=== PATIENT | male | born 1940 | race African-American/Black ===

== ENCOUNTER 2021-08-17 20:57 | Inpatient (IN) | payer OTHER ==
[2021-08-17 21:23] VITALS: BMI 27.4
[2021-08-17] MEDS ORDERED: ASPIRIN 325 MG TABLET PO ONE (21:55)
[2021-08-17 22:05] LABS: BASO % 0.8 % (0-2.0); EOS % 4.4 % (0-4.5); HEMOGLOBIN 12.3 GM/dL (11.7-16.9); LYMPH % 31.2 % (8-40); MCH 26.3 pg (25.7-33.7); MCHC 33.1 g/dl (32.0-35.9); MEAN CELL VOLUME 79.5 fl (80-96); MEAN PLT VOLUME 7.5 fl (7.5-11.1); MONO % 8.8 % (3.8-10.2); NEUT % 54.8 % (42.8-82.8); PLATELET COUNT 298 10^3/uL (134-434); RBC 4.66 M/mm3 (4.00-5.60); WHITE BLOOD COUNT 6.6 K/mm3 (4.0-10.0)
[2021-08-17 22:11] LABS: INR 1.03 (0.83-1.09); PROTHROMBIN TIME (PATIENT) 11.8 SEC (9.7-13.0)
[2021-08-17 22:14] LABS: ACTIVATED PTT 32.2 SECONDS (25.2-36.5)
[2021-08-17] MEDS ORDERED: ASPIRIN 325 MG TABLET ONE (22:18)
[2021-08-17 22:30] LABS: ALBUMIN 3.2 g/dl (3.4-5.0); BLOOD UREA NITROGEN 22.9 mg/dL (7-18)
[2021-08-17 22:33] LABS: CREATININE 2.3 mg/dL (0.55-1.3)
[2021-08-17 22:34] LABS: BILIRUBIN,TOTAL 0.3 mg/dL (0.2-1); TOT PROT 6.5 g/dl (6.4-8.2)
[2021-08-18] MEDS ORDERED: ATORVASTATIN CA 80 MG TABLET (FP) PO ONE (00:09)
[2021-08-18] MEDS ORDERED: ATORVASTATIN CA 80 MG TABLET (FP) ONE (00:14)
[2021-08-18] MEDS ORDERED: NOREPINEPHRINE D5W PREMIX 16,000 MCG/500 ML BAG IVPB SCH (00:15)
[2021-08-18] MEDS ORDERED: HEPARIN NA (PORCINE) 5,000 UNITS/ML 1ML VIAL ONE (06:08)
[2021-08-18] MEDS: HEPARIN NA (PORCINE) 5,000 UNITS/ML 1ML VIAL SQ SCH ×3 (06:12→21:05)
[2021-08-18 07:22] LABS: BLOOD UREA NITROGEN 22.5 mg/dL (7-18); CALCIUM 9.2 mg/dL (8.5-10.1)
[2021-08-18 07:23] LABS: ALBUMIN 3.2 g/dl (3.4-5.0)
[2021-08-18 07:26] LABS: CREATININE 2.1 mg/dL (0.55-1.3); PHOSPHOROUS 4.3 mg/dL (2.5-4.9)
[2021-08-18 07:27] LABS: BILIRUBIN,TOTAL 0.3 mg/dL (0.2-1); TOT PROT 6.2 g/dl (6.4-8.2)
[2021-08-18] MEDS ORDERED: ASPIRIN COATED 81 MG TABLET.EC PO SCH (10:00)
[2021-08-18 10:04] LABS: BASO % 0.5 % (0-2.0); EOS % 5.4 % (0-4.5); HEMOGLOBIN 11.5 GM/dL (11.7-16.9); LYMPH % 36.1 % (8-40); MCH 26.1 pg (25.7-33.7); MCHC 32.9 g/dl (32.0-35.9); MEAN CELL VOLUME 79.4 fl (80-96); MEAN PLT VOLUME 7.4 fl (7.5-11.1); MONO % 9.3 % (3.8-10.2); NEUT % 48.7 % (42.8-82.8); PLATELET COUNT 304 10^3/uL (134-434); RBC 4.41 M/mm3 (4.00-5.60); RDW 15.8 % (11.9-15.9); WHITE BLOOD COUNT 6.6 K/mm3 (4.0-10.0)
[2021-08-18] MEDS ORDERED: amLODIPine BESYLATE 5 MG TABLET (FP) PO SCH (12:00)
[2021-08-18] MEDS: SODIUM CHLORIDE 1,000 ML IV SCH (13:00)
[2021-08-18] MEDS: CLOPIDOGREL BISULFATE 75 MG TABLET (FP) PO SCH (13:26)
[2021-08-18] MEDS ORDERED: amLODIPine BESYLATE 5 MG TABLET (FP) PO ONE (15:49)
[2021-08-18] MEDS ORDERED: PNEUMOC 20-VAL CONJ-DIP CRM/PF 0.5 ML SYRINGE IM ONE (17:45)
[2021-08-18] MEDS ORDERED: FLU VACC QS2021-22(6MOS UP)/PF 60 MCG/0.5 ML SYRINGE IM ONE (17:45)
[2021-08-18 18:22] LABS: EPI CELLS 2 /uL (0-25.1); HYALINE CASTS 0 /uL (0-3.1); PH,URINE 5.5 (5.0-8.0); URINE APPEARANCE CLEAR; URINE BACTERIA 4 /uL (0-1359); URINE BILIRUBIN NEGATIVE (NEGATIVE); URINE COLOR YELLOW; URINE GLUCOSE (UA) TRACE (NEGATIVE); URINE KETONE NEGATIVE (NEGATIVE); URINE LEUK ESTERASE NEGATIVE (NEGATIVE); URINE NITRITE NEGATIVE (NEGATIVE); URINE PROTEIN 1+ (NEGATIVE); URINE RBC 2 /uL (0-23.9); URINE WBC 4 /uL (0-25.8)
[2021-08-18] MEDS: ATORVASTATIN CA 40 MG TABLET (FP) PO SCH (21:05)
[2021-08-18] MEDS ORDERED: ATORVASTATIN CA 80 MG TABLET (FP) PO SCH (22:00)
[2021-08-19] MEDS: HEPARIN NA (PORCINE) 5,000 UNITS/ML 1ML VIAL SQ SCH ×3 (06:07→21:56)
[2021-08-19] MEDS: CLOPIDOGREL BISULFATE 75 MG TABLET (FP) PO SCH (09:06)
[2021-08-19] MEDS: amLODIPine BESYLATE 10 MG TABLET (FP) PO SCH (09:06)
[2021-08-19 09:24] LABS: BASO % 0.7 % (0-2.0); EOS % 6.1 % (0-4.5); HEMATOCRIT 38.6 % (35.4-49); HEMOGLOBIN 12.3 GM/dL (11.7-16.9); LYMPH % 40.1 % (8-40); MCH 25.5 pg (25.7-33.7); MCHC 31.9 g/dl (32.0-35.9); MEAN CELL VOLUME 79.9 fl (80-96); MEAN PLT VOLUME 7.7 fl (7.5-11.1); MONO % 7.9 % (3.8-10.2); NEUT % 45.2 % (42.8-82.8); PLATELET COUNT 323 10^3/uL (134-434); RBC 4.84 M/mm3 (4.00-5.60); RDW 16.1 % (11.9-15.9); WHITE BLOOD COUNT 6.2 K/mm3 (4.0-10.0)
[2021-08-19 09:43] LABS: CALCIUM 9.4 mg/dL (8.5-10.1)
[2021-08-19 09:44] LABS: ALBUMIN 3.4 g/dl (3.4-5.0); BLOOD UREA NITROGEN 18.9 mg/dL (7-18); MAGNESIUM 2.1 mg/dL (1.8-2.4)
[2021-08-19 09:47] LABS: CREATININE 1.8 mg/dL (0.55-1.3); PHOSPHOROUS 3.7 mg/dL (2.5-4.9)
[2021-08-19 09:48] LABS: BILIRUBIN,TOTAL 0.5 mg/dL (0.2-1); TOT PROT 6.8 g/dl (6.4-8.2)
[2021-08-19] MEDS: SODIUM CHLORIDE 1,000 ML IV SCH (15:16)
[2021-08-19] MEDS: ATORVASTATIN CA 40 MG TABLET (FP) PO SCH (21:51)
[2021-08-20] MEDS: HEPARIN NA (PORCINE) 5,000 UNITS/ML 1ML VIAL SQ SCH ×3 (06:04→21:21)
[2021-08-20] MEDS: ASPIRIN 81 MG CHEWABLE TABLETS PO SCH (09:37)
[2021-08-20] MEDS: CLOPIDOGREL BISULFATE 75 MG TABLET (FP) PO SCH (09:37)
[2021-08-20] MEDS: amLODIPine BESYLATE 10 MG TABLET (FP) PO SCH (09:37)
[2021-08-20 09:38] LABS: BASO % 0.7 % (0-2.0); EOS % 6.5 % (0-4.5); HEMATOCRIT 36.4 % (35.4-49); HEMOGLOBIN 11.7 GM/dL (11.7-16.9); LYMPH % 36.2 % (8-40); MCH 25.6 pg (25.7-33.7); MCHC 32.2 g/dl (32.0-35.9); MEAN CELL VOLUME 79.6 fl (80-96); MEAN PLT VOLUME 7.8 fl (7.5-11.1); MONO % 8.3 % (3.8-10.2); NEUT % 48.3 % (42.8-82.8); PLATELET COUNT 307 10^3/uL (134-434); RBC 4.58 M/mm3 (4.00-5.60); RDW 15.7 % (11.9-15.9); WHITE BLOOD COUNT 6.5 K/mm3 (4.0-10.0)
[2021-08-20 10:04] LABS: CALCIUM 9.4 mg/dL (8.5-10.1)
[2021-08-20 10:06] LABS: ALBUMIN 3.4 g/dl (3.4-5.0); MAGNESIUM 2.1 mg/dL (1.8-2.4)
[2021-08-20 10:08] LABS: CREATININE 1.8 mg/dL (0.55-1.3)
[2021-08-20 10:09] LABS: BILIRUBIN,TOTAL 0.5 mg/dL (0.2-1); TOT PROT 6.8 g/dl (6.4-8.2)
[2021-08-20] MEDS: ATORVASTATIN CA 40 MG TABLET (FP) PO SCH (21:21)
[2021-08-21] MEDS: HEPARIN NA (PORCINE) 5,000 UNITS/ML 1ML VIAL SQ SCH ×3 (06:03→21:09)
[2021-08-21] MEDS: amLODIPine BESYLATE 10 MG TABLET (FP) PO SCH (09:00)
[2021-08-21] MEDS: ASPIRIN 81 MG CHEWABLE TABLETS PO SCH (09:00)
[2021-08-21] MEDS: CLOPIDOGREL BISULFATE 75 MG TABLET (FP) PO SCH (09:00)
[2021-08-21 09:40] LABS: BASO % 0.6 % (0-2.0); EOS % 6.9 % (0-4.5); HEMATOCRIT 38.4 % (35.4-49); HEMOGLOBIN 12.2 GM/dL (11.7-16.9); LYMPH % 36.4 % (8-40); MCH 25.3 pg (25.7-33.7); MCHC 31.7 g/dl (32.0-35.9); MEAN CELL VOLUME 79.9 fl (80-96); MEAN PLT VOLUME 7.6 fl (7.5-11.1); MONO % 10.9 % (3.8-10.2); NEUT % 45.2 % (42.8-82.8); PLATELET COUNT 302 10^3/uL (134-434); RDW 15.4 % (11.9-15.9); WHITE BLOOD COUNT 6.3 K/mm3 (4.0-10.0)
[2021-08-21 09:55] LABS: ALBUMIN 3.2 g/dl (3.4-5.0); BLOOD UREA NITROGEN 23.6 mg/dL (7-18); CALCIUM 9.2 mg/dL (8.5-10.1)
[2021-08-21 09:58] LABS: CREATININE 1.9 mg/dL (0.55-1.3); PHOSPHOROUS 4.1 mg/dL (2.5-4.9)
[2021-08-21 09:59] LABS: BILIRUBIN,TOTAL 0.4 mg/dL (0.2-1); TOT PROT 6.4 g/dl (6.4-8.2)
[2021-08-21] MEDS: ATORVASTATIN CA 40 MG TABLET (FP) PO SCH (21:09)
[2021-08-22] MEDS: HEPARIN NA (PORCINE) 5,000 UNITS/ML 1ML VIAL SQ SCH ×3 (06:04→21:13)
[2021-08-22 08:21] LABS: BASO % 0.6 % (0-2.0); EOS % 7.5 % (0-4.5); HEMATOCRIT 38.3 % (35.4-49); HEMOGLOBIN 11.9 GM/dL (11.7-16.9); LYMPH % 38.2 % (8-40); MCH 25.2 pg (25.7-33.7); MCHC 31.2 g/dl (32.0-35.9); MEAN CELL VOLUME 80.9 fl (80-96); MEAN PLT VOLUME 7.7 fl (7.5-11.1); MONO % 6.8 % (3.8-10.2); NEUT % 46.9 % (42.8-82.8); PLATELET COUNT 314 10^3/uL (134-434); RBC 4.73 M/mm3 (4.00-5.60); RDW 15.8 % (11.9-15.9); WHITE BLOOD COUNT 7.5 K/mm3 (4.0-10.0)
[2021-08-22 08:50] LABS: BLOOD UREA NITROGEN 29.1 mg/dL (7-18); CALCIUM 9.3 mg/dL (8.5-10.1); MAGNESIUM 2.2 mg/dL (1.8-2.4)
[2021-08-22 08:53] LABS: CREATININE 2.2 mg/dL (0.55-1.3); PHOSPHOROUS 4.2 mg/dL (2.5-4.9)
[2021-08-22 08:54] LABS: BILIRUBIN,TOTAL 0.3 mg/dL (0.2-1); TOT PROT 6.1 g/dl (6.4-8.2)
[2021-08-22] MEDS: CLOPIDOGREL BISULFATE 75 MG TABLET (FP) PO SCH (09:00)
[2021-08-22] MEDS: ASPIRIN 81 MG CHEWABLE TABLETS PO SCH (09:00)
[2021-08-22] MEDS: amLODIPine BESYLATE 10 MG TABLET (FP) PO SCH (09:00)
[2021-08-22] MEDS: SODIUM CHLORIDE 1,000 ML IV SCH (11:17)
[2021-08-22 12:16] LABS: EPI CELLS 3 /uL (0-25.1); HYALINE CASTS 0 /uL (0-3.1); URINE APPEARANCE CLEAR; URINE BACTERIA 2291 /uL (0-1359); URINE BILIRUBIN NEGATIVE (NEGATIVE); URINE COLOR YELLOW; URINE GLUCOSE (UA) NEGATIVE (NEGATIVE); URINE KETONE NEGATIVE (NEGATIVE); URINE LEUK ESTERASE NEGATIVE (NEGATIVE); URINE NITRITE NEGATIVE (NEGATIVE); URINE PROTEIN 1+ (NEGATIVE); URINE RBC 2 /uL (0-23.9); URINE UROBILINOGEN 0.2 mg/dL (0.2-1.0); URINE WBC 5 /uL (0-25.8)
[2021-08-22] MEDS ORDERED: ATORVASTATIN CA 80 MG TABLET (FP) PO SCH (22:00)
[2021-08-23] MEDS: SODIUM CHLORIDE 1,000 ML IV SCH (00:45)
[2021-08-23] MEDS: HEPARIN NA (PORCINE) 5,000 UNITS/ML 1ML VIAL SQ SCH ×2 (05:46→13:21)
[2021-08-23 09:03] LABS: BASO % 0.7 % (0-2.0); EOS % 7.5 % (0-4.5); HEMATOCRIT 36.1 % (35.4-49); HEMOGLOBIN 11.4 GM/dL (11.7-16.9); LYMPH % 38.4 % (8-40); MCH 25.6 pg (25.7-33.7); MCHC 31.5 g/dl (32.0-35.9); MEAN CELL VOLUME 81.1 fl (80-96); MEAN PLT VOLUME 7.6 fl (7.5-11.1); MONO % 9.3 % (3.8-10.2); NEUT % 44.1 % (42.8-82.8); PLATELET COUNT 309 10^3/uL (134-434); RBC 4.45 M/mm3 (4.00-5.60); RDW 15.6 % (11.9-15.9); WHITE BLOOD COUNT 6.9 K/mm3 (4.0-10.0)
[2021-08-23] MEDS: amLODIPine BESYLATE 10 MG TABLET (FP) PO SCH (09:06)
[2021-08-23] MEDS: CLOPIDOGREL BISULFATE 75 MG TABLET (FP) PO SCH (09:06)
[2021-08-23] MEDS: ASPIRIN 81 MG CHEWABLE TABLETS PO SCH (09:07)
[2021-08-23 10:02] LABS: PHOSPHOROUS 4.1 mg/dL (2.5-4.9)
[2021-08-23 10:03] LABS: BILIRUBIN,TOTAL 0.3 mg/dL (0.2-1); TOT PROT 5.8 g/dl (6.4-8.2)
[2021-08-23 10:14] LABS: CALCIUM 8.8 mg/dL (8.5-10.1); MAGNESIUM 2.1 mg/dL (1.8-2.4)
[2021-08-23 10:15] LABS: ALBUMIN 2.9 g/dl (3.4-5.0); BLOOD UREA NITROGEN 26.8 mg/dL (7-18)
[2021-08-23 14:55] VITALS: BP 140/77; PULSE 98; TEMP 98.7
== END 2021-08-23 16:54 | disposition home or self-care (01) | DRG 69 ==
LOC: JER 20:57 → JERBED 22:33 → J4S 08-18 08:00
PROVIDERS: ADMIT Internal Medicine; ATTEND Internal Medicine
DX: G45.8 Other transient cerebral ischemic attacks and related syndromes (principal); I69.354 Hemiplegia and hemiparesis following cerebral infarction affecting left non-dominant side; N17.9 Acute kidney failure, unspecified; E78.5 Hyperlipidemia, unspecified; G51.0 Bell's palsy; I44.0 Atrioventricular block, first degree; I69.391 Dysphagia following cerebral infarction; R13.19 Other dysphagia; N28.1 Cyst of kidney, acquired; R20.8 Other disturbances of skin sensation; I12.9 Hypertensive chronic kidney disease with stage 1 through stage 4 chronic kidney disease, or unspecified chronic kidney disease; N18.9 Chronic kidney disease, unspecified; Z85.46 Personal history of malignant neoplasm of prostate; R73.03 Prediabetes
CPT/HCPCS: 36415; 70450-TC; 70496-TC; 70498-TC; 70551-TC; 71045-TC-FY; 72125-TC; 76775-TC; 80053; 80061; 81003; 82550; 82553; 82570; 83036; 83735; 84100; 84156; 84300; 84443; 84484; 85025; 85610; 85730; 86850; 86900; 86901; 90677; 90686; 93005; 93010; 93306-TC; 93880-TC; 94010; 97116-GP; 97162-GP; 99285-25; C9803-CS; G0008; J1644; U0003; U0005

== ENCOUNTER 2023-06-01 14:23 | Observation (INO) | payer OTHER ==
[2023-06-01 14:50] VITALS: BMI 35.7
[2023-06-01 16:31] LABS: BASO % 1.1 % (0-2.0); EOS % 5.3 % (0-4.5); HEMATOCRIT 32.5 % (35.4-49); HEMOGLOBIN 10.3 GM/dL (11.7-16.9); LYMPH % 30.9 % (8-40); MCH 24.8 pg (25.7-33.7); MCHC 31.7 g/dl (32.0-35.9); MEAN CELL VOLUME 78.2 fl (80-96); MONO % 8.7 % (3.8-10.2); PLATELET COUNT 302 10^3/uL (134-434); RBC 4.15 M/mm3 (4.00-5.60); RDW 18.4 % (11.9-15.9)
[2023-06-01 16:38] LABS: INR 1.1 (0.83-1.09); PROTHROMBIN TIME (PATIENT) 12.7 SEC (9.7-13.0)
[2023-06-01 16:41] LABS: ACTIVATED PTT 31.8 SECONDS (25.2-36.5)
[2023-06-01 16:48] LABS: CHLORIDE 114 mmol/L (98-107); SODIUM 141 mmol/L (136-145)
[2023-06-01 16:49] LABS: ALBUMIN 3.4 g/dl (3.4-5.0); BLOOD UREA NITROGEN 35.5 mg/dL (7-18); CALCIUM 9.2 mg/dL (8.5-10.1); CO2 21 mmol/L (21-32); GLUCOSE,RANDOM 80 mg/dL (74-106); MAGNESIUM 2.1 mg/dL (1.8-2.4)
[2023-06-01 16:52] LABS: CREATININE 3.2 mg/dL (0.55-1.3); SGOT/AST 28 U/L (15-37); SGPT/ALT 33 U/L (13-61)
[2023-06-01 16:53] LABS: URIC ACID 8.2 mg/dL (2.6-7.2)
[2023-06-01 16:55] LABS: BILIRUBIN,TOTAL 0.2 mg/dL (0.2-1); TOT PROT 7.1 g/dl (6.4-8.2)
[2023-06-01 16:56] LABS: ALK PHOS 87 U/L (45-117)
[2023-06-01 16:58] LABS: ANION GAP 7 mmol/L (4-13); POTASSIUM 6.1 mmol/L (3.5-5.1)
[2023-06-01 17:18] LABS: ERYTHROCYTE SEDIMENTATION RATE 28 mm/hr (0-20)
[2023-06-01] MEDS ORDERED: predniSONE 20 MG TABLET (UD) ONE (17:46)
[2023-06-01] MEDS ORDERED: SODIUM ZIRCONIUM CYCLOSILICATE (LOKELMA) 10 GM PACKET ONE (17:46)
[2023-06-01] MEDS ORDERED: DEXTROSE 50%-WATER 25 GM/50 ML DISP.SYRIN ONE (17:46)
[2023-06-01] MEDS ORDERED: INSULIN REGULAR HUMAN 100 UNITS/ML *VIAL ONE (17:47)
[2023-06-01] MEDS: predniSONE 20 MG TABLET (UD) PO ONE (17:59)
[2023-06-01] MEDS: DEXTROSE 50%-WATER 25 GM/50 ML DISP.SYRIN IVPUSH ONE (17:59)
[2023-06-01] MEDS: SODIUM CHLORIDE 0.9% 500 ML INFUS.BAG IV ONE (17:59)
[2023-06-01] MEDS: INSULIN REGULAR HUMAN 100 UNITS/ML *VIAL IVPUSH ONE (17:59)
[2023-06-01] MEDS: SODIUM ZIRCONIUM CYCLOSILICATE (LOKELMA) 5 GM PACKET PO ONE (17:59)
[2023-06-01] MEDS ORDERED: HEPARIN NA (PORCINE) 5,000 UNITS/ML 1ML VIAL ONE (21:28)
[2023-06-01] MEDS: HEPARIN NA (PORCINE) 5,000 UNITS/ML 1ML VIAL SQ SCH (21:33)
[2023-06-01 22:55] LABS: RETICULOCYTES 0.68 % (0.5-1.5)
[2023-06-01 23:01] LABS: EPI CELLS 2 /uL (0-25.1); HYALINE CASTS 0 /uL (0-3.1); PH,URINE 5.5 (5.0-8.0); URINE APPEARANCE CLEAR; URINE BACTERIA 1 /uL (0-1359); URINE BILIRUBIN NEGATIVE (NEGATIVE); URINE COLOR YELLOW; URINE GLUCOSE (UA) NEGATIVE (NEGATIVE); URINE KETONE NEGATIVE (NEGATIVE); URINE LEUK ESTERASE NEGATIVE (NEGATIVE); URINE NITRITE NEGATIVE (NEGATIVE); URINE PROTEIN 2+ (NEGATIVE); URINE RBC 10 /uL (0-23.9); URINE UROBILINOGEN 0.2 mg/dL (0.2-1.0); URINE WBC 3 /uL (0-25.8)
[2023-06-01 23:03] LABS: IRON SERUM 26 ug/dL (50-175); PHOSPHOROUS 3.9 mg/dL (2.5-4.9); TOTAL IRON BINDING CAPACITY 317 ug/dL (250-450)
[2023-06-01] MEDS ORDERED: COLCHICINE 0.6 MG TAB ONE (23:06)
[2023-06-02] MEDS ORDERED: COLCHICINE 0.6 MG TAB ONE (00:26)
[2023-06-02] MEDS: COLCHICINE 0.6 MG TAB PO ONE ×2 (00:28)
[2023-06-02] MEDS: SODIUM ZIRCONIUM CYCLOSILICATE (LOKELMA) 5 GM PACKET PO SCH ×2 (02:51→13:43)
[2023-06-02] MEDS ORDERED: SODIUM ZIRCONIUM CYCLOSILICATE (LOKELMA) 10 GM PACKET ONE (02:51)
[2023-06-02 07:39] LABS: BASO % 0.3 % (0-2.0); HEMATOCRIT 31.8 % (35.4-49); LYMPH % 20.2 % (8-40); MCH 24.5 pg (25.7-33.7); MCHC 31.4 g/dl (32.0-35.9); MEAN CELL VOLUME 77.9 fl (80-96); MEAN PLT VOLUME 6.9 fl (7.5-11.1); MONO % 3.2 % (3.8-10.2); NEUT % 76.3 % (42.8-82.8); PLATELET COUNT 333 10^3/uL (134-434); RBC 4.09 M/mm3 (4.00-5.60); RDW 18.4 % (11.9-15.9); RETICULOCYTES 0.83 % (0.5-1.5); WHITE BLOOD COUNT 9.2 K/mm3 (4.0-10.0)
[2023-06-02 07:53] LABS: POTASSIUM 5.3 mmol/L (3.5-5.1)
[2023-06-02 08:00] LABS: ALBUMIN 3.2 g/dl (3.4-5.0); BLOOD UREA NITROGEN 37.2 mg/dL (7-18); CALCIUM 9.3 mg/dL (8.5-10.1)
[2023-06-02 08:01] LABS: MAGNESIUM 1.8 mg/dL (1.8-2.4)
[2023-06-02 08:04] LABS: PHOSPHOROUS 4.4 mg/dL (2.5-4.9)
[2023-06-02 08:05] LABS: BILIRUBIN,TOTAL 0.2 mg/dL (0.2-1)
[2023-06-02 08:06] LABS: TOT PROT 6.7 g/dl (6.4-8.2)
[2023-06-02] MEDS: ASPIRIN COATED 81 MG TABLET.EC PO SCH (09:40)
[2023-06-02] MEDS: amLODIPine BESYLATE 10 MG TABLET (FP) PO SCH (09:40)
[2023-06-02] MEDS: ATORVASTATIN CA 40 MG TABLET (FP) PO SCH (21:19)
[2023-06-03 08:21] LABS: POTASSIUM 4.3 mmol/L (3.5-5.1)
[2023-06-03 08:21] LABS: BASO % 0.6 % (0-2.0); EOS % 6.7 % (0-4.5); HEMATOCRIT 29.6 % (35.4-49); HEMOGLOBIN 9.3 GM/dL (11.7-16.9); LYMPH % 41.2 % (8-40); MCH 24.5 pg (25.7-33.7); MCHC 31.4 g/dl (32.0-35.9); MEAN PLT VOLUME 7.4 fl (7.5-11.1); MONO % 8.5 % (3.8-10.2); PLATELET COUNT 330 10^3/uL (134-434); RDW 17.7 % (11.9-15.9); WHITE BLOOD COUNT 9.1 K/mm3 (4.0-10.0)
[2023-06-03 08:25] LABS: ALBUMIN 2.8 g/dl (3.4-5.0); BLOOD UREA NITROGEN 44.6 mg/dL (7-18); CALCIUM 8.2 mg/dL (8.5-10.1); MAGNESIUM 1.7 mg/dL (1.8-2.4)
[2023-06-03 08:28] LABS: CREATININE 3.2 mg/dL (0.55-1.3)
[2023-06-03 08:29] LABS: TOT PROT 5.8 g/dl (6.4-8.2)
[2023-06-03 08:31] LABS: BILIRUBIN,TOTAL 0.3 mg/dL (0.2-1)
[2023-06-03] MEDS: MAGNESIUM SULF 50% (8.12 MEQ/2 ML-1 GM VIAL) IVPB ONE (09:07)
[2023-06-03] MEDS: CLOPIDOGREL BISULFATE 75 MG TABLET (FP) PO SCH (09:27)
[2023-06-03] MEDS: MAGNESIUM 2GM/50ML STERILE WATER IVPB IVPB ONE (10:24)
[2023-06-03] MEDS: SODIUM CHLORIDE 0.45% 1,000 ML IV SCH (11:21)
[2023-06-04] MEDS: HEPARIN NA (PORCINE) 5,000 UNITS/ML 1ML VIAL SQ SCH (06:26)
[2023-06-04 09:01] LABS: BASO % 0.8 % (0-2.0); HEMATOCRIT 29.6 % (35.4-49); HEMOGLOBIN 9.4 GM/dL (11.7-16.9); LYMPH % 41.4 % (8-40); MCH 24.9 pg (25.7-33.7); MCHC 31.9 g/dl (32.0-35.9); MEAN CELL VOLUME 78.1 fl (80-96); MEAN PLT VOLUME 7.1 fl (7.5-11.1); MONO % 9.8 % (3.8-10.2); PLATELET COUNT 316 10^3/uL (134-434); RBC 3.79 M/mm3 (4.00-5.60); RDW 17.9 % (11.9-15.9); WHITE BLOOD COUNT 7.2 K/mm3 (4.0-10.0)
[2023-06-04 09:15] LABS: POTASSIUM 4.2 mmol/L (3.5-5.1)
[2023-06-04 09:18] LABS: ALBUMIN 2.8 g/dl (3.4-5.0); CALCIUM 8.2 mg/dL (8.5-10.1)
[2023-06-04 09:19] LABS: BLOOD UREA NITROGEN 42.9 mg/dL (7-18)
[2023-06-04 09:21] LABS: CREATININE 3.1 mg/dL (0.55-1.3); PHOSPHOROUS 4.6 mg/dL (2.5-4.9)
[2023-06-04 09:23] LABS: BILIRUBIN,TOTAL 0.3 mg/dL (0.2-1); TOT PROT 5.9 g/dl (6.4-8.2)
[2023-06-04] MEDS: ASPIRIN COATED 81 MG TABLET.EC PO SCH (09:26)
[2023-06-04] MEDS: CLOPIDOGREL BISULFATE 75 MG TABLET (FP) PO SCH (09:26)
[2023-06-04] MEDS ORDERED: SODIUM ZIRCONIUM CYCLOSILICATE (LOKELMA) 5 GM PACKET PO SCH (10:00)
[2023-06-04] MEDS ORDERED: COLCHICINE 0.6 MG TAB PO SCH (10:00)
[2023-06-04] MEDS: ATORVASTATIN CA 40 MG TABLET (FP) PO SCH (21:10)
[2023-06-05 10:05] LABS: HEMATOCRIT 30.6 % (35.4-49); HEMOGLOBIN 9.8 GM/dL (11.7-16.9); MCHC 32.1 g/dl (32.0-35.9); MEAN CELL VOLUME 77.9 fl (80-96); MEAN PLT VOLUME 7.1 fl (7.5-11.1); PLATELET COUNT 326 10^3/uL (134-434); RBC 3.92 M/mm3 (4.00-5.60); RDW 17.5 % (11.9-15.9); WHITE BLOOD COUNT 6.8 K/mm3 (4.0-10.0)
[2023-06-05 10:23] LABS: POTASSIUM 4.2 mmol/L (3.5-5.1)
[2023-06-05 10:34] LABS: MAGNESIUM 1.8 mg/dL (1.8-2.4)
[2023-06-05 10:37] LABS: CREATININE 2.9 mg/dL (0.55-1.3)
[2023-06-05 10:38] LABS: CALCIUM 8.4 mg/dL (8.5-10.1)
[2023-06-05 10:42] LABS: BLOOD UREA NITROGEN 38.4 mg/dL (7-18)
[2023-06-06 09:34] VITALS: BP 121/57; PULSE 76; RESP 18; TEMP 97.3
[2023-06-06] MEDS: COLCHICINE 0.6 MG TAB PO SCH (11:56)
== END 2023-06-06 12:30 | disposition home or self-care (01) ==
LOC: JER 14:23 → UNDOADMOB 17:02 → JERBED 17:02 → INTOOBSV 17:02 → JERBED 06-02 05:13 → J4W 06-02 05:13 → JERBED 06-03 13:56 → J4W 06-03 13:56 → J6S 06-03 15:07
PROVIDERS: ADMIT Internal Medicine; ATTEND Internal Medicine
PROC: 3E033GC Introduction of Other Therapeutic Substance into Peripheral Vein, Percutaneous Approach (ICD-10-PCS; principal; 2023-06-03)
PROC: 3E023GC Introduction of Other Therapeutic Substance into Muscle, Percutaneous Approach (ICD-10-PCS; 2023-06-03)
PROC: 3E033VG Introduction of Insulin into Peripheral Vein, Percutaneous Approach (ICD-10-PCS; 2023-06-03)
PROC: 3E033GC Introduction of Other Therapeutic Substance into Peripheral Vein, Percutaneous Approach (ICD-10-PCS; 2023-06-03)
PROC: 3E0337Z Introduction of Electrolytic and Water Balance Substance into Peripheral Vein, Percutaneous Approach (ICD-10-PCS; 2023-06-03)
DX: M10.9 Gout, unspecified (principal); N17.9 Acute kidney failure, unspecified; N18.9 Chronic kidney disease, unspecified; I12.9 Hypertensive chronic kidney disease with stage 1 through stage 4 chronic kidney disease, or unspecified chronic kidney disease; N18.4 Chronic kidney disease, stage 4 (severe); Z86.73 Personal history of transient ischemic attack (TIA), and cerebral infarction without residual deficits; K59.00 Constipation, unspecified; Z85.46 Personal history of malignant neoplasm of prostate; E87.5 Hyperkalemia; D50.9 Iron deficiency anemia, unspecified; B35.1 Tinea unguium
CPT/HCPCS: 36415; 71045-TC-FY; 73610-TC-LT-FY; 73630-TC-LT; 76775-TC; 80048; 80053; 81003; 82550; 82553; 82728; 82962; 83036; 83540; 83550; 83735; 84100; 84550; 85025; 85027; 85045; 85610; 85651; 85730; 86140; 86850; 86900; 86901; 93005; 93010; 93925-TC; 93971-TC; 96361; 96372; 96374; 96375; 97116-GP; 99285-25; G0378; J1644

== ENCOUNTER 2023-06-06 14:14 | Observation (INO) | payer OTHER ==
[2023-06-06 15:32] LABS: BASO % 0.7 % (0-2.0); EOS % 4.2 % (0-4.5); HEMATOCRIT 35.4 % (35.4-49); HEMOGLOBIN 11.4 GM/dL (11.7-16.9); LYMPH % 23.1 % (8-40); MEAN CELL VOLUME 78.1 fl (80-96); MONO % 6.9 % (3.8-10.2); NEUT % 65.1 % (42.8-82.8); PLATELET COUNT 380 10^3/uL (134-434); RBC 4.54 M/mm3 (4.00-5.60); RDW 17.9 % (11.9-15.9); WHITE BLOOD COUNT 6.9 K/mm3 (4.0-10.0)
[2023-06-06 15:32] LABS: VENOUS BASE EXCESS -5.3 mmol/L (-2-2); VENOUS PCO2 43.1 mmHg (38-52); VENOUS PH 7.302 (7.310-7.410)
[2023-06-06 15:45] LABS: INR 1.01 (0.83-1.09); PROTHROMBIN TIME (PATIENT) 11.7 SEC (9.7-13.0)
[2023-06-06 15:47] LABS: ACTIVATED PTT 34.2 SECONDS (25.2-36.5)
[2023-06-06 15:51] LABS: POTASSIUM 4.8 mmol/L (3.5-5.1)
[2023-06-06 15:54] LABS: CALCIUM 9.1 mg/dL (8.5-10.1)
[2023-06-06 15:55] LABS: ALBUMIN 3.3 g/dl (3.4-5.0); BLOOD UREA NITROGEN 36.2 mg/dL (7-18); CHOLESTEROL 193 mg/dL (50-200)
[2023-06-06 15:57] LABS: LDL CHOLESTEROL (ONLY SJRH) 92 mg/dL (5-100)
[2023-06-06 15:58] LABS: CREATININE 2.8 mg/dL (0.55-1.3); HDL CHOLESTEROL 87 mg/dL (40-60)
[2023-06-06 16:00] LABS: BILIRUBIN,TOTAL 0.2 mg/dL (0.2-1)
[2023-06-06] MEDS ORDERED: ASPIRIN 81 MG CHEWABLE TABLETS ONE (17:13)
[2023-06-06] MEDS ORDERED: ATORVASTATIN CA 40 MG TABLET (FP) ONE (17:13)
[2023-06-06] MEDS: ASPIRIN 81 MG CHEWABLE TABLETS PO ONE (17:32)
[2023-06-06] MEDS: ATORVASTATIN CA 40 MG TABLET (FP) PO ONE (17:32)
[2023-06-06 17:34] LABS: EPI CELLS 5 /uL (0-25.1); HYALINE CASTS 0 /uL (0-3.1); PH,URINE 5.5 (5.0-8.0); URINE APPEARANCE CLEAR; URINE BACTERIA 11 /uL (0-1359); URINE BILIRUBIN NEGATIVE (NEGATIVE); URINE COLOR YELLOW; URINE GLUCOSE (UA) NEGATIVE (NEGATIVE); URINE KETONE NEGATIVE (NEGATIVE); URINE LEUK ESTERASE NEGATIVE (NEGATIVE); URINE NITRITE NEGATIVE (NEGATIVE); URINE PROTEIN 2+ (NEGATIVE); URINE RBC 16 /uL (0-23.9); URINE UROBILINOGEN 0.2 mg/dL (0.2-1.0); URINE WBC 6 /uL (0-25.8)
[2023-06-07] MEDS: HEPARIN NA (PORCINE) 5,000 UNITS/ML 1ML VIAL SQ SCH (00:05)
[2023-06-07 05:59] LABS: INR 1.17 (0.83-1.09); PROTHROMBIN TIME (PATIENT) 13.5 SEC (9.7-13.0)
[2023-06-07 06:23] LABS: POTASSIUM 4.1 mmol/L (3.5-5.1)
[2023-06-07 06:26] LABS: ALBUMIN 3.1 g/dl (3.4-5.0); BLOOD UREA NITROGEN 32.8 mg/dL (7-18); CALCIUM 8.3 mg/dL (8.5-10.1); MAGNESIUM 1.6 mg/dL (1.8-2.4)
[2023-06-07 06:29] LABS: CREATININE 2.7 mg/dL (0.55-1.3)
[2023-06-07 06:31] LABS: BILIRUBIN,TOTAL 0.3 mg/dL (0.2-1); TOT PROT 6.7 g/dl (6.4-8.2)
[2023-06-07 06:56] LABS: HEMATOCRIT 31.6 % (35.4-49); HEMOGLOBIN 10.3 GM/dL (11.7-16.9); MCH 25.4 pg (25.7-33.7); MCHC 32.7 g/dl (32.0-35.9); MEAN CELL VOLUME 77.8 fl (80-96); MEAN PLT VOLUME 6.9 fl (7.5-11.1); PLATELET COUNT 354 10^3/uL (134-434); RBC 4.06 M/mm3 (4.00-5.60); WHITE BLOOD COUNT 9.7 K/mm3 (4.0-10.0)
[2023-06-07] MEDS ORDERED: HEPARIN NA (PORCINE) 5,000 UNITS/ML 1ML VIAL ONE ×2 (06:59)
[2023-06-07] MEDS ORDERED: dilTIAZem HCL 60 MG TABLET ONE (09:02)
[2023-06-07] MEDS ORDERED: predniSONE 20 MG TABLET (UD) ONE (09:02)
[2023-06-07] MEDS ORDERED: ASPIRIN COATED 81 MG TABLET.EC ONE (09:02)
[2023-06-07] MEDS ORDERED: CLOPIDOGREL BISULFATE 75 MG TABLET (FP) ONE (09:02)
[2023-06-07] MEDS ORDERED: VALSARTAN 80 MG TABLET ONE (09:03)
[2023-06-07] MEDS: ASPIRIN COATED 81 MG TABLET.EC PO SCH (09:14)
[2023-06-07] MEDS: predniSONE 20 MG TABLET (UD) PO SCH (09:14)
[2023-06-07] MEDS: CLOPIDOGREL BISULFATE 75 MG TABLET (FP) PO SCH (09:14)
[2023-06-07] MEDS: VALSARTAN 40 MG TABLET PO SCH (09:14)
[2023-06-07] MEDS ORDERED: INSULIN (NOVOLOG) ASPART 100 UNITS/ML 10ML VIAL ONE (21:55)
[2023-06-07] MEDS: INSULIN ASPART SLIDING SCALE (NOVOLOG) 1 VIAL SQ SCH (22:31)
[2023-06-08] MEDS: predniSONE 20 MG TABLET (UD) PO SCH (07:39)
[2023-06-08] MEDS: VALSARTAN 80 MG TABLET PO SCH (11:07)
[2023-06-08 11:38] VITALS: BMI 35.6
[2023-06-08] MEDS ORDERED: INSULIN (NOVOLOG) ASPART 100 UNITS/ML 10ML VIAL ONE (17:26)
[2023-06-09 08:16] LABS: POTASSIUM 5.1 mmol/L (3.5-5.1)
[2023-06-09 08:24] LABS: BLOOD UREA NITROGEN 51.8 mg/dL (7-18); CALCIUM 8.6 mg/dL (8.5-10.1)
[2023-06-09 08:27] LABS: CREATININE 3.5 mg/dL (0.55-1.3)
[2023-06-09 08:29] LABS: BILIRUBIN,TOTAL 0.2 mg/dL (0.2-1); TOT PROT 6.3 g/dl (6.4-8.2)
[2023-06-09 09:32] LABS: BASO % 0.2 % (0-2.0); HEMATOCRIT 31.4 % (35.4-49); HEMOGLOBIN 9.7 GM/dL (11.7-16.9); LYMPH % 20.9 % (8-40); MCH 24.4 pg (25.7-33.7); MCHC 30.8 g/dl (32.0-35.9); MEAN CELL VOLUME 79.2 fl (80-96); MEAN PLT VOLUME 7.6 fl (7.5-11.1); MONO % 8.1 % (3.8-10.2); NEUT % 70.8 % (42.8-82.8); PLATELET COUNT 377 10^3/uL (134-434); RBC 3.97 M/mm3 (4.00-5.60); RDW 18.1 % (11.9-15.9); WHITE BLOOD COUNT 14.9 K/mm3 (4.0-10.0)
[2023-06-10 08:38] LABS: BASO % 0.3 % (0-2.0); EOS % 0.1 % (0-4.5); HEMATOCRIT 31.1 % (35.4-49); LYMPH % 24.6 % (8-40); MCH 25.1 pg (25.7-33.7); MCHC 32.3 g/dl (32.0-35.9); MEAN CELL VOLUME 77.9 fl (80-96); MEAN PLT VOLUME 7.4 fl (7.5-11.1); MONO % 8.8 % (3.8-10.2); NEUT % 66.2 % (42.8-82.8); PLATELET COUNT 384 10^3/uL (134-434); RBC 3.99 M/mm3 (4.00-5.60); WHITE BLOOD COUNT 16.4 K/mm3 (4.0-10.0)
[2023-06-10 09:04] LABS: POTASSIUM 4.9 mmol/L (3.5-5.1)
[2023-06-10 09:07] LABS: ALBUMIN 3.2 g/dl (3.4-5.0); BLOOD UREA NITROGEN 58.2 mg/dL (7-18); CALCIUM 8.7 mg/dL (8.5-10.1)
[2023-06-10 09:10] LABS: CREATININE 3.5 mg/dL (0.55-1.3)
[2023-06-10 09:12] LABS: BILIRUBIN,TOTAL 0.2 mg/dL (0.2-1); TOT PROT 6.6 g/dl (6.4-8.2)
[2023-06-10] MEDS: POLYETHYLENE GLYCOL (HEALTHYLAX) 3350 17 GM PACKET PO ONE (09:52)
[2023-06-10] MEDS: ATORVASTATIN CA 80 MG TABLET (FP) PO SCH (21:40)
[2023-06-11 09:14] LABS: BASO % 0.4 % (0-2.0); EOS % 0.1 % (0-4.5); HEMATOCRIT 34.7 % (35.4-49); LYMPH % 24.5 % (8-40); MCHC 31.7 g/dl (32.0-35.9); MEAN CELL VOLUME 78.9 fl (80-96); MEAN PLT VOLUME 7.8 fl (7.5-11.1); MONO % 7.7 % (3.8-10.2); NEUT % 67.3 % (42.8-82.8); PLATELET COUNT 415 10^3/uL (134-434); RDW 18.4 % (11.9-15.9); WHITE BLOOD COUNT 16.7 K/mm3 (4.0-10.0)
[2023-06-11 09:23] LABS: POTASSIUM 5.2 mmol/L (3.5-5.1)
[2023-06-11 09:39] LABS: CALCIUM 8.9 mg/dL (8.5-10.1)
[2023-06-11 09:40] LABS: ALBUMIN 3.4 g/dl (3.4-5.0); BLOOD UREA NITROGEN 63.3 mg/dL (7-18)
[2023-06-11 09:44] LABS: BILIRUBIN,TOTAL 0.4 mg/dL (0.2-1); TOT PROT 7.2 g/dl (6.4-8.2)
[2023-06-11 09:48] LABS: CREATININE 3.3 mg/dL (0.55-1.3)
[2023-06-11] MEDS: PANTOPRAZOLE 40 MG TABLET PO SCH (10:23)
[2023-06-11] MEDS: predniSONE 20 MG TABLET (UD) PO SCH (10:24)
[2023-06-11] MEDS: DOCUSATE SODIUM 100 MG CAPSULE (FP) PO SCH (15:37)
[2023-06-11] MEDS: POLYETHYLENE GLYCOL (HEALTHYLAX) 3350 17 GM PACKET PO ONE (15:37)
[2023-06-11] MEDS ORDERED: INSULIN (NOVOLOG) ASPART 100 UNITS/ML 10ML VIAL ONE (17:28)
[2023-06-11 22:35] VITALS: RESP 18
[2023-06-12 06:45] LABS: BASO % 0.3 % (0-2.0); EOS % 0.1 % (0-4.5); HEMATOCRIT 32.5 % (35.4-49); HEMOGLOBIN 10.1 GM/dL (11.7-16.9); LYMPH % 26.9 % (8-40); MCH 24.4 pg (25.7-33.7); MEAN CELL VOLUME 78.7 fl (80-96); MEAN PLT VOLUME 7.3 fl (7.5-11.1); NEUT % 62.7 % (42.8-82.8); PLATELET COUNT 381 10^3/uL (134-434); RBC 4.13 M/mm3 (4.00-5.60); RDW 18.2 % (11.9-15.9); WHITE BLOOD COUNT 15.2 K/mm3 (4.0-10.0)
[2023-06-12 06:53] LABS: POTASSIUM 4.9 mmol/L (3.5-5.1)
[2023-06-12 07:09] LABS: CALCIUM 8.5 mg/dL (8.5-10.1)
[2023-06-12 07:12] LABS: CREATININE 3.3 mg/dL (0.55-1.3)
[2023-06-12 07:13] LABS: BILIRUBIN,TOTAL 0.3 mg/dL (0.2-1); TOT PROT 6.4 g/dl (6.4-8.2)
[2023-06-12 08:05] VITALS: BP 145/69; PULSE 65; TEMP 97.5
== END 2023-06-12 18:05 ==
LOC: JER 14:14 → JERBED 15:08 → J4W 06-07 11:44
PROVIDERS: ADMIT Internal Medicine; ATTEND Internal Medicine
PROC: 0HBRXZZ Excision of Toe Nail, External Approach (ICD-10-PCS; principal; 2023-06-06)
PROC: 0HBRXZZ Excision of Toe Nail, External Approach (ICD-10-PCS; 2023-06-06)
PROC: 0HBRXZZ Excision of Toe Nail, External Approach (ICD-10-PCS; 2023-06-06)
PROC: 0HBRXZZ Excision of Toe Nail, External Approach (ICD-10-PCS; 2023-06-06)
PROC: 0HBRXZZ Excision of Toe Nail, External Approach (ICD-10-PCS; 2023-06-06)
PROC: 0HBRXZZ Excision of Toe Nail, External Approach (ICD-10-PCS; 2023-06-06)
PROC: 0HBRXZZ Excision of Toe Nail, External Approach (ICD-10-PCS; 2023-06-06)
PROC: 0HBRXZZ Excision of Toe Nail, External Approach (ICD-10-PCS; 2023-06-06)
DX: G45.9 Transient cerebral ischemic attack, unspecified (principal); E11.9 Type 2 diabetes mellitus without complications; I12.9 Hypertensive chronic kidney disease with stage 1 through stage 4 chronic kidney disease, or unspecified chronic kidney disease; I69.354 Hemiplegia and hemiparesis following cerebral infarction affecting left non-dominant side; F41.9 Anxiety disorder, unspecified; L53.8 Other specified erythematous conditions; R63.0 Anorexia; M79.675 Pain in left toe(s); M79.674 Pain in right toe(s); N18.4 Chronic kidney disease, stage 4 (severe); J44.9 Chronic obstructive pulmonary disease, unspecified; C61 Malignant neoplasm of prostate; E78.00 Pure hypercholesterolemia, unspecified; G51.0 Bell's palsy; E66.9 Obesity, unspecified; K21.9 Gastro-esophageal reflux disease without esophagitis; G20.A1 Parkinson's disease without dyskinesia, without mention of fluctuations; G62.9 Polyneuropathy, unspecified; M14.60 Charcot's joint, unspecified site; R47.1 Dysarthria and anarthria; M10.9 Gout, unspecified; N17.9 Acute kidney failure, unspecified; Z29.89 Encounter for other specified prophylactic measures
CPT/HCPCS: 0241U-QW; 11720; 36415; 70450-TC; 70496-TC; 70498-TC; 70551-TC; 80053; 80061; 81003; 82570; 82607; 82803; 82962; 83036; 83605; 83735; 84100; 84156; 84300; 84443; 84484; 85025; 85027; 85610; 85730; 86780; 86850; 86900; 86901; 87086; 87186; 87635; 93005; 93010; 93306-TC; 93880-TC; 94660; 97116-GP; 97162-GP; 99285-25; G0378; J1644

== ENCOUNTER 2023-08-10 23:37 | Emergency (ER) | payer OTHER ==
[2023-08-10 23:55] VITALS: BP 155/89; PULSE 92; RESP 18; TEMP 98.1; BMI 35.7
[2023-08-11 01:23] LABS: VENOUS BASE EXCESS -3.4 mmol/L (-2-2); VENOUS O2 SATURATION 47.2 % (70-80); VENOUS PCO2 42.4 mmHg (38-52); VENOUS PH 7.338 (7.310-7.410)
[2023-08-11 01:26] LABS: BASO % 0.8 % (0-2.0); EOS % 5.8 % (0-4.5); HEMATOCRIT 29.6 % (35.4-49); HEMOGLOBIN 9.2 GM/dL (11.7-16.9); LYMPH % 41.5 % (8-40); MCH 25.1 pg (25.7-33.7); MEAN CELL VOLUME 80.9 fl (80-96); MONO % 9.5 % (3.8-10.2); NEUT % 42.4 % (42.8-82.8); PLATELET COUNT 330 10^3/uL (134-434); RBC 3.65 M/mm3 (4.00-5.60); RDW 18.2 % (11.9-15.9); WHITE BLOOD COUNT 8.4 K/mm3 (4.0-10.0)
[2023-08-11 01:31] LABS: INR 1.05 (0.83-1.09); PROTHROMBIN TIME (PATIENT) 11.8 SEC (9.7-13.0)
[2023-08-11 01:34] LABS: ACTIVATED PTT 32.3 SECONDS (25.2-36.5)
[2023-08-11 01:52] LABS: POTASSIUM 4.7 mmol/L (3.5-5.1)
[2023-08-11 01:54] LABS: CALCIUM 8.8 mg/dL (8.5-10.1)
[2023-08-11 01:55] LABS: ALBUMIN 3.4 g/dl (3.4-5.0); BLOOD UREA NITROGEN 38.4 mg/dL (7-18)
[2023-08-11 01:58] LABS: CREATININE 3.1 mg/dL (0.55-1.3)
[2023-08-11 02:00] LABS: BILIRUBIN,TOTAL 0.3 mg/dL (0.2-1); TOT PROT 6.5 g/dl (6.4-8.2)
[2023-08-11] MEDS: SODIUM CHLORIDE FOR INHALATION 3 ML VIAL.NEB IH ONE (02:00)
[2023-08-11] MEDS ORDERED: DEXAMETHASONE SOD PHOSPHATE 10 MG/1 ML VIAL ONE (03:03)
[2023-08-11] MEDS: DEXAMETHASONE SOD PHOSPHATE 10 MG/1 ML VIAL IVPUSH ONE (03:07)
== END 2023-08-11 04:23 | disposition home or self-care (01) ==
LOC: JER 23:37
PROC: 3E033GC Introduction of Other Therapeutic Substance into Peripheral Vein, Percutaneous Approach (ICD-10-PCS; principal; 2023-08-11)
DX: R06.02 Shortness of breath (principal); M79.89 Other specified soft tissue disorders
CPT/HCPCS: 36415; 71250-TC; 80053; 82803; 84484; 85025; 85610; 85730; 93005; 93010; 93971-TC; 96374; 99285-25; J1100

== ENCOUNTER 2025-02-06 18:59 | Inpatient (IN) | payer OTHER ==
[2025-02-06 19:29] VITALS: BMI 30.9
[2025-02-06] MEDS ORDERED: ACETAMINOPHEN INJECTION 100 ML ONE (20:35)
[2025-02-06 20:36] LABS: GLUCOSE,RANDOM 115.0 mg/dL (74-106)
[2025-02-06 20:37] LABS: TOT PROT 6.5 g/dl (6.4-8.2)
[2025-02-06 20:38] LABS: CO2 19.0 mmol/L (21-32)
[2025-02-06 20:39] LABS: ALK PHOS 76.0 U/L (40-150)
[2025-02-06 20:42] LABS: CREATININE 3.17 mg/dL (0.55-1.3); SGOT/AST 21.0 U/L (5-34); SGPT/ALT 14.0 U/L (0-55)
[2025-02-06] MEDS: SODIUM CHLORIDE 0.9% 500 ML INFUS.BAG IV ONE (20:42)
[2025-02-06] MEDS: ACETAMINOPHEN 1000 MG/100 ML BAG IVPB ONE (20:43)
[2025-02-06 20:58] LABS: ABSOLUTE IMMATURE GRANULOCYTES 0.04 x10^3/uL (0.0-0.031); BASOPHILS # 0.05 x10^3/uL (0.01-0.08); EOSINOPHIL % 2.1 % (0.8-7.0); EOSINOPHILS # 0.22 x10^3/uL (0.04-0.54); MCHC 29.7 g/dl (32.3-36.5); MEAN CELL VOLUME 82.7 fl (79.0-92.2); MEAN PLT VOLUME 9.3 fl (9.4-12.4); MONOCYTE # 0.76 x10^3/uL (0.30-0.82); MONOCYTE % 7.3 % (5.3-12.2); RDW 17.8 % (12.6-16.6)
[2025-02-06 21:07] LABS: INR 1.1 (0.83-1.09); PROTHROMBIN TIME (PATIENT) 12.0 SEC (9.7-13.0)
[2025-02-06 21:10] LABS: ACTIVATED PTT 24.5 SECONDS (25.2-36.5)
[2025-02-06 22:41] LABS: HCV DIAGNOSTIC IN-HOUSE W/RFLX NON-REACTIVE (NONREACTIVE); HIV INTERPRETATION NEGATIVE (NEGATIVE)
[2025-02-06 22:54] LABS: MCHC 29.6 g/dl (32.3-36.5); MEAN CELL VOLUME 82.5 fl (79.0-92.2); MEAN PLT VOLUME 8.9 fl (9.4-12.4); RDW 17.7 % (12.6-16.6)
[2025-02-06] MEDS: PIPERACILLIN/TAZOB 3.375 GM 3.375 GM in DEXTROSE 5%-WATER - 50 ML IVPB ONE (23:08)
[2025-02-06] MEDS ORDERED: ONDANSETRON 4 MG/2 ML VIAL IVPUSH PRN (23:26)
[2025-02-06] MEDS ORDERED: AMPICILLIN NA/SULBACTAM NA 3 GM/100 ML BAG IVPB ONE (23:37)
[2025-02-06] MEDS: DEXTROSE 5%-0.45% SALINE 1,000 ML IV SCH (23:43)
[2025-02-06] MEDS: AMPICILLIN NA/SULBACTAM NA 3 GM in SODIUM CHLORIDE 100 ML IVPB SCH (23:43)
[2025-02-07] MEDS ORDERED: AMPICILLIN NA/SULBACTAM NA 1.5 GM VIAL ONE ×2 (00:36→12:47)
[2025-02-07] MEDS: AMPICILLIN NA/SULBACTAM NA 1.5 GM in SODIUM CHLORIDE 100 ML IVPB SCH ×2 (00:51→23:31)
[2025-02-07] MEDS ORDERED: CARBIDOPA/LEVODOPA 25/100 TABLET (FP) ONE (06:06)
[2025-02-07 06:35] LABS: ABSOLUTE IMMATURE GRANULOCYTES 0.03 x10^3/uL (0.0-0.031); BASOPHILS # 0.05 x10^3/uL (0.01-0.08); EOSINOPHIL % 4.5 % (0.8-7.0); EOSINOPHILS # 0.46 x10^3/uL (0.04-0.54); MCHC 29.1 g/dl (32.3-36.5); MEAN CELL VOLUME 83.7 fl (79.0-92.2); MEAN PLT VOLUME 9.1 fl (9.4-12.4); MONOCYTE # 0.84 x10^3/uL (0.30-0.82); MONOCYTE % 8.2 % (5.3-12.2); RDW 17.7 % (12.6-16.6)
[2025-02-07 06:43] LABS: GLUCOSE,RANDOM 93.0 mg/dL (74-106); TOT PROT 6.2 g/dl (6.4-8.2)
[2025-02-07 06:44] LABS: INR 1.21 (0.83-1.09); PROTHROMBIN TIME (PATIENT) 13.2 SEC (9.7-13.0)
[2025-02-07 06:45] LABS: CO2 18.0 mmol/L (21-32)
[2025-02-07 06:46] LABS: ALK PHOS 81.0 U/L (40-150)
[2025-02-07 06:49] LABS: CREATININE 2.74 mg/dL (0.55-1.3); SGOT/AST 20.0 U/L (5-34); SGPT/ALT 15.0 U/L (0-55)
[2025-02-07] MEDS ORDERED: PANTOPRAZOLE SODIUM 40 MG VIAL ONE (09:29)
[2025-02-07] MEDS ORDERED: predniSONE 20 MG TABLET (UD) ONE (09:29)
[2025-02-07] MEDS: predniSONE 20 MG TABLET (UD) PO SCH (09:59)
[2025-02-07] MEDS: PANTOPRAZOLE SODIUM 40 MG VIAL IVPUSH SCH (09:59)
[2025-02-07] MEDS: CALCITRIOL 0.25 MCG CAPSULE (FP) PO SCH (09:59)
[2025-02-07 10:43] LABS: URINE APPEARANCE Clear; URINE BILIRUBIN Negative (NEGATIVE); URINE COLOR Yellow; URINE GLUCOSE (UA) Negative (NEGATIVE); URINE KETONE Negative (NEGATIVE); URINE LEUK ESTERASE Negative (NEGATIVE); URINE NITRITE Negative (NEGATIVE); URINE PROTEIN Trace (NEGATIVE); URINE UROBILINOGEN 0.2 mg/dL (0.2-1.0)
[2025-02-07 15:02] LABS: ABSOLUTE IMMATURE GRANULOCYTES 0.03 x10^3/uL (0.0-0.031); BASOPHILS # 0.03 x10^3/uL (0.01-0.08); EOSINOPHIL % 0.3 % (0.8-7.0); EOSINOPHILS # 0.03 x10^3/uL (0.04-0.54); MCHC 30.5 g/dl (32.3-36.5); MEAN CELL VOLUME 82.5 fl (79.0-92.2); MEAN PLT VOLUME 9.0 fl (9.4-12.4); MONOCYTE # 0.17 x10^3/uL (0.30-0.82); MONOCYTE % 1.9 % (5.3-12.2); RDW 17.9 % (12.6-16.6)
[2025-02-07 20:39] LABS: ABSOLUTE IMMATURE GRANULOCYTES 0.04 x10^3/uL (0.0-0.031); BASOPHILS # 0.02 x10^3/uL (0.01-0.08); EOSINOPHIL % 0.0 % (0.8-7.0); EOSINOPHILS # 0.00 x10^3/uL (0.04-0.54); MCHC 29.8 g/dl (32.3-36.5); MEAN CELL VOLUME 83.0 fl (79.0-92.2); MEAN PLT VOLUME 9.5 fl (9.4-12.4); MONOCYTE # 0.26 x10^3/uL (0.30-0.82); MONOCYTE % 3.2 % (5.3-12.2); RDW 17.4 % (12.6-16.6)
[2025-02-07] MEDS: ATORVASTATIN CA 80 MG TABLET (FP) PO SCH (21:47)
[2025-02-08 08:02] LABS: ABSOLUTE IMMATURE GRANULOCYTES 0.02 x10^3/uL (0.0-0.031); BASOPHILS # 0.03 x10^3/uL (0.01-0.08); EOSINOPHIL % 1.7 % (0.8-7.0); EOSINOPHILS # 0.15 x10^3/uL (0.04-0.54); MCHC 29.4 g/dl (32.3-36.5); MEAN CELL VOLUME 82.5 fl (79.0-92.2); MEAN PLT VOLUME 9.3 fl (9.4-12.4); MONOCYTE # 0.97 x10^3/uL (0.30-0.82); MONOCYTE % 11.1 % (5.3-12.2); RDW 17.3 % (12.6-16.6)
[2025-02-08 08:11] LABS: GLUCOSE,RANDOM 97 mg/dL (74-106); TOT PROT 5.8 g/dl (6.4-8.2)
[2025-02-08 08:12] LABS: CO2 20 mmol/L (21-32)
[2025-02-08 08:13] LABS: ALK PHOS 74 U/L (40-150)
[2025-02-08 08:16] LABS: SGOT/AST 15 U/L (5-34); SGPT/ALT < 6 U/L (0-55)
[2025-02-08 08:17] LABS: CREATININE 2.38 mg/dL (0.55-1.3)
[2025-02-08] MEDS ORDERED: DOCUSATE SODIUM 100 MG CAPSULE (FP) PO PRN (09:13)
[2025-02-08] MEDS: TAMSULOSIN HCL 0.4 MG CAP PO SCH (09:54)
[2025-02-09 08:43] LABS: ABSOLUTE IMMATURE GRANULOCYTES 0.03 x10^3/uL (0.0-0.031); BASOPHILS # 0.02 x10^3/uL (0.01-0.08); EOSINOPHIL % 0.5 % (0.8-7.0); EOSINOPHILS # 0.04 x10^3/uL (0.04-0.54); MCHC 30.2 g/dl (32.3-36.5); MEAN CELL VOLUME 82.1 fl (79.0-92.2); MEAN PLT VOLUME 9.3 fl (9.4-12.4); MONOCYTE # 0.79 x10^3/uL (0.30-0.82); MONOCYTE % 10.0 % (5.3-12.2); RDW 16.8 % (12.6-16.6)
[2025-02-09 08:47] LABS: INR 1.17 (0.83-1.09); PROTHROMBIN TIME (PATIENT) 12.9 SEC (9.7-13.0)
[2025-02-09 09:15] LABS: GLUCOSE,RANDOM 106 mg/dL (74-106); TOT PROT 5.0 g/dl (6.4-8.2)
[2025-02-09 09:16] LABS: CO2 21 mmol/L (21-32)
[2025-02-09 09:18] LABS: ALK PHOS 62 U/L (40-150)
[2025-02-09 09:20] LABS: SGOT/AST 13 U/L (5-34); SGPT/ALT < 6 U/L (0-55)
[2025-02-09 09:21] LABS: CREATININE 2.27 mg/dL (0.55-1.3)
[2025-02-09] MEDS: EPINEPHrine 1:10,000 (P-F SYR) 1 MG/10 ML DISP.SYRIN IVPUSH ONE (12:46)
[2025-02-09] MEDS: HYDROCORTISONE ACETATE 25 MG/SUPP.RECT RC SCH (21:53)
[2025-02-10 08:56] LABS: ABSOLUTE IMMATURE GRANULOCYTES 0.12 x10^3/uL (0.0-0.031); BASOPHILS # 0.02 x10^3/uL (0.01-0.08); EOSINOPHIL % 0.0 % (0.8-7.0); EOSINOPHILS # 0.00 x10^3/uL (0.04-0.54); MCHC 30.0 g/dl (32.3-36.5); MEAN CELL VOLUME 81.5 fl (79.0-92.2); MEAN PLT VOLUME 9.3 fl (9.4-12.4); MONOCYTE # 0.72 x10^3/uL (0.30-0.82); MONOCYTE % 6.9 % (5.3-12.2); RDW 17.2 % (12.6-16.6)
[2025-02-10 09:57] LABS: GLUCOSE,RANDOM 98 mg/dL (74-106); TOT PROT 5.8 g/dl (6.4-8.2)
[2025-02-10 09:58] LABS: CO2 21 mmol/L (21-32)
[2025-02-10 10:00] LABS: ALK PHOS 73 U/L (40-150)
[2025-02-10 10:03] LABS: CREATININE 2.35 mg/dL (0.55-1.3); SGOT/AST 15 U/L (5-34); SGPT/ALT < 6 U/L (0-55)
[2025-02-10] MEDS: SODIUM ZIRCONIUM CYCLOSILICATE (LOKELMA) 5 GM PACKET PO ONE (13:16)
[2025-02-10 16:26] VITALS: BP 135/70; PULSE 106; RESP 18; TEMP 97.9
== END 2025-02-10 16:38 | disposition home or self-care (01) | DRG 378 ==
LOC: JER 18:59 → JERBED 22:56 → J4S 02-07 17:43
PROVIDERS: ADMIT Hospitalist; ATTEND Nurse Practitioner
PROC: 0DH Gastrointestinal System, Insertion (ICD-10-PCS; principal; 2025-02-09 11:15)
DX: K57.31 Diverticulosis of large intestine without perforation or abscess with bleeding (principal); I69.351 Hemiplegia and hemiparesis following cerebral infarction affecting right dominant side; N18.4 Chronic kidney disease, stage 4 (severe); K62.89 Other specified diseases of anus and rectum; K62.5 Hemorrhage of anus and rectum; G20.A1 Parkinson's disease without dyskinesia, without mention of fluctuations; I12.9 Hypertensive chronic kidney disease with stage 1 through stage 4 chronic kidney disease, or unspecified chronic kidney disease; C61 Malignant neoplasm of prostate; E11.42 Type 2 diabetes mellitus with diabetic polyneuropathy; E11.22 Type 2 diabetes mellitus with diabetic chronic kidney disease; E78.5 Hyperlipidemia, unspecified; M10.9 Gout, unspecified; K21.9 Gastro-esophageal reflux disease without esophagitis; K64.8 Other hemorrhoids; K62.7 Radiation proctitis
CPT/HCPCS: 36415; 74176-TC; 80053; 81003; 83735; 85025; 85027; 85610; 85730; 86803; 86850; 86900; 86901; 87086; 87389; 93005; 93010; 97116-GP; 97161-GP; 99285-25